=== PATIENT | male | born 1965 | race Native Hawaiian/Other Pacific Islander ===

== ENCOUNTER 2017-11-07 14:28 | Emergency (ER) | payer OTHER ==
[~2017-11-07] VITALS: Ht 167.6 cm; Wt 79.4 kg
[2017-11-07 15:20] VITALS: BP 147/86; TEMP 98.2
== END 2017-11-07 15:20 | disposition home or self-care (01) ==
LOC: ED 14:28
DX: T22.211A Burn of second degree of right forearm, initial encounter (principal); T31.0 Burns involving less than 10% of body surface; X16.XXXA Contact with hot heating appliances, radiators and pipes, initial encounter
CPT/HCPCS: 90471; 90715; 96374; 99283; J1885; J7040

== ENCOUNTER 2018-12-16 14:53 | Outpatient (CLI) | payer OTHER ==
[2018-12-17] MEDS ORDERED: METF500T PO ×2 (08:23→08:24)
[2018-12-17] MEDS ORDERED: METO50TA27 PO (08:23)
[2018-12-17] MEDS ORDERED: DEPO-TESTOS100 MG/M1 IM (08:26)
[2018-12-17] MEDS ORDERED: SIMV40TA57 PO (08:28)
[2018-12-17] MEDS ORDERED: VALSARTAN320 MG PO (08:28)
[2018-12-17] MEDS ORDERED: GLIM2TAB PO (08:29)
[2018-12-17] MEDS ORDERED: OMEPRAZOLE DR20 MG PO (08:29)
== END 2018-12-16 14:55 | disposition short-term general hospital (02) ==
LOC: AMB 14:53
DX: R56.9 Unspecified convulsions (principal)
CPT/HCPCS: A0425; A0429

== ENCOUNTER 2018-12-16 15:09 | Observation (INO) | payer OTHER ==
[~2018-12-16] VITALS: Ht 175.3 cm; Wt 89.2 kg
[2018-12-16 15:10] VITALS: BP 155/92
[2018-12-16 17:03] LABS: PLATELET COUNT 408 K/uL (142-355)
[2018-12-16 21:41] VITALS: BP 133/83; TEMP 98; Ht 175.3 cm; Wt 89.2 kg
[2018-12-17 00:02] VITALS: BP 107/66; TEMP 98.5
--- NOTE | 2018-12-17 03:38 | NUR ---
LAB CALLED WITH [facility]ITICAL [facility] CPK 1310, CALLED DR ROSAS AND RECIEVED ORDERS TO BOLUS 1 LITER OF LR THEN NS @ 150
[2018-12-17 04:10] LABS: PARTIAL THROMBOPLASTIN TIME 26.3 SECONDS (24.5-33.6)
[2018-12-17] MEDS ORDERED: METF500T PO ×2 (08:23→08:24)
[2018-12-17] MEDS ORDERED: METO50TA27 PO (08:23)
[2018-12-17] MEDS ORDERED: DEPO-TESTOS100 MG/M1 IM (08:26)
[2018-12-17] MEDS ORDERED: VALSARTAN320 MG PO (08:28)
[2018-12-17] MEDS ORDERED: SIMV40TA57 PO (08:28)
[2018-12-17] MEDS ORDERED: GLIM2TAB PO (08:29)
[2018-12-17] MEDS ORDERED: OMEPRAZOLE DR20 MG PO (08:29)
[2018-12-17 08:32] VITALS: BP 113/53; TEMP 98.9
[2018-12-17 08:43] LABS: POTASSIUM 3.7 mmol/L (3.6-5.2)
[2018-12-17 12:18] VITALS: BP 118/59; TEMP 98.4
--- NOTE | 2018-12-17 12:35 | NUR ---
@7428 DR MUNGUIA IN TO SEE PATIENT, TALKED TO PATIENT ABOUT HIS LEFT SHOULDER INJURY AND REFERRED HIM TO SEE AN ORTHOPEDIC DR AFTER DISCHARGE, NO PRESCRIPTIONS GIVEN. @6456 PT DISCHARGED TO HOME, DISCHARGE INSTRUCTIONS EXPLAINED TO PATIENT AND , STATED UNDERSTANDING. IV DISCONTINUED, TIP INTACT, NO REDNESS OR EDEMA NOTED, CLEAN DRY DRESSING APPLIED AND SECURED WITH PAPER TAPE, NAD NOTED. PT TAKEN OUT TO PRIVATE CAR BY W/Jonas
== END 2018-12-17 12:35 | disposition home or self-care (01) ==
LOC: ED 15:09 → MED/SURG 19:15
PROVIDERS: Emergency Medicine; ADMIT Family Medicine
DX: S43.085A Other dislocation of left shoulder joint, initial encounter (principal); R55 Syncope and collapse; E11.649 Type 2 diabetes mellitus with hypoglycemia without coma; W18.39XA Other fall on same level, initial encounter; Y92.89 Other specified places as the place of occurrence of the external cause; I10 Essential (primary) hypertension; E78.00 Pure hypercholesterolemia, unspecified
CPT/HCPCS: 36415; 80053; 80307; 82550; 82553; 82962; 83036; 83735; 84484; 85027; 85610; 85730; 93005; 96365; 96366; 96372; 99220; 99283; G0378; J1650; J2270; J7120

== ENCOUNTER 2018-12-27 13:11 | Outpatient (CLI) | payer OTHER ==
[~2018-12-27 13:11] MED LIST: DEPO-TESTOS100 MG/M1 IM; GLIM2TAB PO; METF500T PO; METO50TA27 PO; OMEPRAZOLE DR20 MG PO; SIMV40TA57 PO; VALSARTAN320 MG PO
== END 2018-12-27 20:14 | disposition home or self-care (01) ==
LOC: CT 13:11
DX: S43.025A Posterior dislocation of left humerus, initial encounter (principal)

== ENCOUNTER 2019-12-18 15:30 | Outpatient (CLI) | payer OTHER ==
[2019-12-18 16:07] LABS: PLATELET COUNT 381 K/uL (142-355)
[2019-12-18 16:17] LABS: POTASSIUM 3.9 mmol/L (3.6-5.2)
== END 2019-12-18 19:10 | disposition home or self-care (01) ==
LOC: LAB 15:30
PROVIDERS: Internal Medicine Medical Oncology
DX: D50.9 Iron deficiency anemia, unspecified (principal)
CPT/HCPCS: 36415; 80053; 82607; 82728; 83540; 83550; 85027; 85044

== ENCOUNTER 2022-11-24 09:21 | Outpatient (CLI) | payer BC | END 2022-11-24 19:58 | disposition home or self-care (01) | LOC: RAD 09:21 | PROVIDERS: ATTEND Physician Assistant | DX: M79.641 Pain in right hand (principal) ==